=== PATIENT | female | born 1995 | race Caucasian/White ===

== ENCOUNTER 2017-10-16 08:03 | Inpatient (IN) | payer BC, OTHER ==
[~2017-10-16] VITALS: Ht 165.1 cm; Wt 80.7 kg
[2017-10-16] MEDS ORDERED: SUMATRIPTAN SUCCINATE 50 MG TABLET PO PRN (19:15)
[2017-10-16] MEDS ORDERED: MAGNESIUM HYDROXIDE 30 ML LIQUID UDC PO PRN (19:15)
[2017-10-16] MEDS ORDERED: DOCUSATE SODIUM 250 MG CAPSULE PO PRN (19:15)
[2017-10-16] MEDS ORDERED: ONDANSETRON 4 MG/2 ML VIAL IM PRN (19:15)
[2017-10-16] MEDS ORDERED: ACETAMINOPHEN 325 MG TABLET PO PRN (19:15)
[2017-10-16] MEDS ORDERED: LOPERAMIDE HCL 2 MG CAPSULE PO PRN ×2 (19:15)
[2017-10-16] MEDS ORDERED: LORAZEPAM 1 MG TABLET PO PRN ×2 (19:15)
[2017-10-16] MEDS ORDERED: LORAZEPAM 2 MG/1 ML VIAL IM PRN (19:15)
[2017-10-16] MEDS ORDERED: ONDANSETRON ODT 4 MG TAB.RAPDIS SL PRN (19:15)
[2017-10-16] MEDS ORDERED: CLONIDINE HCL 0.1 MG TABLET PO PRN (19:15)
[2017-10-16] MEDS ORDERED: NICOTINE 14 MG/24HR PATCH TD PRN (19:15)
[2017-10-16] MEDS ORDERED: PATIENT MAY USE OWN MED- MD OK INH PRN (19:15)
[2017-10-16] MEDS ORDERED: diphenhydrAMINE 50 MG CAPSULE PO PRN (19:15)
[2017-10-16] MEDS ORDERED: NICOTINE POLACRILEX 4 MG GUM-PK OF TEN BC PRN (19:15)
[2017-10-16] MEDS ORDERED: MAG HYDROX/AL HYDROX/SIMETH 30 ML LIQUID UDC PO PRN (19:15)
[2017-10-16] MEDS ORDERED: MIRALAX 17 GM POWD.PACK PO PRN (19:15)
[2017-10-16] MEDS ORDERED: IBUPROFEN 400 MG TABLET PO PRN (19:15)
--- NOTE | 2017-10-16 19:20 | NUR ---
Pre-Admission Pt is a 22 year old female seen at intake, AAOx4 with anxiety noted at this time. Discussed with patient admission policies of the unit. Pt verbalized understanding of policies regarding disposal of narcotic and other controlled home medications and unit protocols regarding taking vital sign Q4H, kitchen rules and smoking passes. Pt is coherent and able verbalize understanding and is able to respond to questions appropriately. VS BP 131/81, pulse 102, resp 18, temp 98.1, SpO2 96% RA. Will continue with admission upon patients arrival to the unit.
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
[2017-10-16 20:00] VITALS: BP 131/81
[2017-10-16 20:08] LABS: *URINE HCG, QUAL NEGATIVE (NEGATIVE)
[2017-10-16 20:28] LABS: BASOPHILS % (AUTO) 0.5 % (0.0-2.0); EOSINOPHILS # (AUTO) 0.2 K/uL (0.0-0.7); HEMATOCRIT 41.8 % (31.2-41.9); HEMOGLOBIN 14.3 g/dL (10.9-14.3); LYMPHOCYTES # (AUTO) 2.5 K/uL (20.0-40.0); LYMPHOCYTES % (AUTO) 49.2 % (20.5-51.5); MEAN CORPUSCULAR HEMOGLOBIN 32.5 uug (24.7-32.8); MEAN CORPUSCULAR HGB CONC 34 g/dL (32.3-35.6); MEAN CORPUSCULAR VOLUME 95.1 fL (75.5-95.3); MONOCYTES # (AUTO) 0.3 K/uL (2.0-10.0); MONOCYTES % (AUTO) 6.7 % (0.0-11.0); NEUTROPHILS # (AUTO) 2.1 K/uL (1.8-8.9); NEUTROPHILS % (AUTO) 40.6 % (38.5-71.5); PLATELET COUNT (AUTO) 219 K/uL (179-408); WHITE BLOOD COUNT (AUTO) 5.2 K/uL (3.8-11.8)
[2017-10-16 20:38] LABS: BILIRUBIN,TOTAL 0.6 mg/dL (0.2-1.0); MAGNESIUM 1.9 mg/dL (1.8-2.4); POTASSIUM 3.9 mmol/L (3.5-5.1); TOTAL PROTEIN, SERUM 7.1 g/dL (6.4-8.2)
[2017-10-16] MEDS: THIAMINE HCL 100 MG TABLET PO SCH (20:44)
[2017-10-16 20:47] LABS: THYROID STIMULATING HORMONE 1.422 mIU/mL (0.358-3.740)
[2017-10-16 20:56] LABS: *AMPHETAMINE, URINE NEGATIVE (NEGATIVE); *BARBITURATE, URINE NEGATIVE (NEGATIVE); *CANNABINOID, URINE NEGATIVE (NEGATIVE); *COCCAINE, URINE NEGATIVE (NEGATIVE); *OPIATE, URINE NEGATIVE (NEGATIVE); *PHENCYCLIDINE SCREEN,URINE NEGATIVE (NEGATIVE)
[2017-10-16] MEDS ORDERED: LORAZEPAM 1 MG TABLET PO SCH (21:00)
[2017-10-16] MEDS ORDERED: FLUO40CA49 PO (23:17)
[2017-10-16] MEDS ORDERED: BUSP10TA3 PO (23:17)
[2017-10-16] MEDS ORDERED: HYDR25CA PO (23:17)
[2017-10-16] MEDS ORDERED: OMEP20CA10 PO (23:17)
[2017-10-16] MEDS ORDERED: ARIP2TAB3 PO (23:17)
[2017-10-16] MEDS ORDERED: RIZA10TA27 PO (23:17)
[2017-10-16] MEDS ORDERED: TRAZ-147 PO (23:17)
[2017-10-16] MEDS ORDERED: BUSP30TA2 PO (23:17)
[2017-10-16] MEDS ORDERED: ALBU8.5H8 IH (23:17)
[2017-10-16] MEDS ORDERED: GABA-532 PO (23:17)
[2017-10-17] VITALS: BP 119/83
[2017-10-17 04:00] VITALS: BP 112/67
--- NOTE | 2017-10-17 04:00 | NUR ---
CHIDIWA deferred d/t pt sleeping - to assess while pt is awake as ordered. BP 112/67, pulse 90, resp 16, Spo2 99% RA, temp 98.[address], will continue to monitor.
--- NOTE | 2017-10-17 07:00 | NUR ---
End of Shift Pt is a 22 year old female admitted for ETOH/Benzo withdrawal, placed on a 4 day Ativan taper to be started 10/17/2017. During shift, CIWA 11: Pt presented with anxiety, in emotional distress, worried, red eyes, tearing, flushed, depressed, tremors are visible, restless and sad - scheduled Ativan 2mg administered. Pt refused scheduled Vitamin B1 injection x1 d/t fear of needles. Pt educated on risks/benefits of injection. No PRN administered during shift. Pt slept for 8 hours, intake of 500 hours, void x1 and stool x0. Safety measures in place, Endorsed to day shift nurse.
--- NOTE | 2017-10-17 07:10 | NUR ---
START OF SHIFT PATIENT IS A 22 YR OLD FEMALE ADMITTED TO [facility] ON 10/16/17 FOR A MEDICALLY SUPERVISED DETOX FROM ALCOHOL AND BENZODIAZEPINES. SHE HAS BEEN PLACED ON A 4 DAY ATIVAN TAPER AND THIS IS DAY 1. PATIENT IS ASLEEP IN BED AT THIS TIME BUT EASILY AROUSABLE, SHE STATES SHE IS " SO TIRED AND JUST WANTS TO SLEEP " , EDUCATED ON MEDICATION REGIME FOR THE DAY AND PATIENT STATES SHE UNDERSTANDS, ACCEPTS TUBERCULIN SKIN TEST. PATIENT SLEPT FOR 8 + HOURS, LAST CIWA 11 ON PM SHIFT. WILL CONTINUE TO FOLLOW MD PLAN OF CARE.
[2017-10-17 08:00] VITALS: BP 124/84
[2017-10-17] MEDS: LORAZEPAM 1 MG TABLET PO SCH ×3 (08:04→20:10)
[2017-10-17] MEDS: FOLIC ACID 1 MG TABLET PO SCH (08:05)
[2017-10-17] MEDS: THIAMINE HCL 100 MG TABLET PO SCH (08:05)
[2017-10-17] MEDS: MULTIVITAMINS,THERAPEUTIC TABLET PO SCH (08:05)
[2017-10-17] MEDS ORDERED: TUBERCULIN,PURIF.PROT.DERIV. 5 TU/0.1 ML TEST ID ONE (09:00)
--- NOTE | 2017-10-17 09:25 | NUR ---
PRN MOTRIN MOTRIN 400MG PO GIVEN FOR HEADACHE 10/16, WILL REASSESS
--- NOTE | 2017-10-17 09:30 | NUR ---
PPD PLACED RIGHT FOREARM
--- NOTE | 2017-10-17 10:25 | NUR ---
PRN REASSESS PATIENT SLEEP COMFORTABLY IN BED, RR 14 , SIDE RAILS UP, CALL LIGHT WITHIN REACH, CONTINUE TO MONITOR
--- NOTE | 2017-10-17 11:24 | NUR ---
PRN ATIVAN 2MG PO GIVEN FOR CIWA 14, PATIENT PRESENTS WITH EXTREME SWEATING, FLUSHING, ANXIETY AND AGITATION, WILL CONTINUE TO ASSESS
[2017-10-17 11:51] VITALS: BP 133/88
--- NOTE | 2017-10-17 12:24 | NUR ---
PRN REASSESS ATIVAN 2MG PO EFFECTIVE, PT REPORTS LESS ANXIETY AND FEELS LESS AGITATED, CIWA NOW 10 ( WAS 14 )
[2017-10-17] MEDS ORDERED: Medication Not On Formulary EA (Fluoxetine Hcl 40 MG) PO SCH (14:15)
[2017-10-17] MEDS: FLUOXETINE HCL 20 MG CAPSULE PO SCH (14:27)
[2017-10-17 16:00] VITALS: BP 118/86
[2017-10-17] MEDS: busPIRone 10 MG TABLET PO SCH (17:16)
--- NOTE | 2017-10-17 17:32 | NUR ---
PRN ATIVAN 1MG IMG PO ATIVAN GIVEN FOR WITHDRAWAL SYMPTOMS OF INCREASED ANXIETY, AGITATION, SWEATS AND FLUSHING, CIWA 10
--- NOTE | 2017-10-17 18:24 | NUR ---
END OF SHIFT PATIENT IS A 22 YR OLD FEMALE ADMITTED TO [facility] ON 10/16/17 FOR A MEDICALLY SUPERVISED DETOX FROM ALCOHOL AND BENZODIAZEPINES. SHE HAS BEEN PLACED ON A 4 DAY ATIVAN TAPER AND THIS IS DAY 1. PATIENT HAS BEEN ASLEEP IN BED MOST OF THE DAY , WHEN AWAKE PATIENTS WITHDRAWAL SYMPTOMS INCLUDE EXTREME SWEATING, FLUSHED FACE, EXTREME FATIGUE, INCREASED ANXIETY AND AGITATION. PRN MEDS GIVEN THIS SHIFT : ATIVAN 2MG PO, ATIVAN 1 MG PO AND MOTRIN 400MG PO. PATIENT HAD A FLUID INTAKE OF 1500ML, 2 VOIDS AND 0 BM. PPD PLACED ON RIGHT FOREARM. LAST CIWA 1O @ 1700. WILL CONTINUE TO FOLLOW MD PLAN OF CARE.
--- NOTE | 2017-10-17 19:05 | NUR ---
Start of Shift Patient Received. Patient is noted in her room sleeping but easily aroused to verbal stimuli. Breathing even and non labored. Per endorsement, patient continues on a modified Ativan taper. Patient received PRN Ativan 2mg, PRN Ativan 1mg, and Motrin 400mg with all medications noted to be effective. Last noted CIWA 10. All needs attended to promptly. Will continue plan of care as ordered.
[2017-10-17 20:04] VITALS: BP 132/74
[2017-10-17] MEDS: ARIPIPRAZOLE 2 MG TABLET PO SCH (20:11)
[2017-10-17] MEDS ORDERED: TRAZODONE 50 MG TABLET PO SCH (21:00)
[2017-10-18 00:04] VITALS: BP 127/81
[2017-10-18 04:20] VITALS: BP 129/77
--- NOTE | 2017-10-18 07:02 | NUR ---
End of Shift Patient is in bed sleeping. Breathing even and non labored. Patient continues on a modified Ativan taper. Patient is noted to be isolative to room with flat affect. No PRN medications administered. Last noted CIWA 15. Patient noted to sleep a total of 8 hours. All needs attended to promptly. Will endorse to continue plan of care as ordered.
--- NOTE | 2017-10-18 07:11 | NUR ---
Start of Shift Notes: Received patient in her room. Awake, alert and verbally responsive. Good eye contact and smiling during conversation. She states "I feel better than yesterday, I want to take a shower." Denies S/I or H/I noted. No AV hallucinations noted. Empty water bottles and chips noted at bedside table. Maintenance of personal hygiene encouraged. Patient is a 22 year old male admitted for BZO/ETOH withdrawal who was placed on a 4-day Ativan taper as ordered. No adverse reactions noted. Educated patient on her current plan of care for the day and her medication regimen. Encouraged oral fluid intake and encouraged group participation to learn new skills to prevent relapse. Will continue to monitor closely.
[2017-10-18 08:00] VITALS: BP 138/85
[2017-10-18 08:06] LABS: HEPATITIS B SURFACE AG Negative (Negative)
[2017-10-18] MEDS: THIAMINE HCL 100 MG TABLET PO SCH (08:08)
[2017-10-18] MEDS: FOLIC ACID 1 MG TABLET PO SCH (08:08)
[2017-10-18] MEDS: MULTIVITAMINS,THERAPEUTIC TABLET PO SCH (08:08)
[2017-10-18] MEDS: busPIRone 10 MG TABLET PO SCH ×2 (08:08→16:32)
[2017-10-18] MEDS: FLUOXETINE HCL 20 MG CAPSULE PO SCH (08:08)
[2017-10-18 08:43] LABS: BILIRUBIN,DIRECT 0.4 mg/dL (0.0-0.2); BILIRUBIN,TOTAL 1.6 mg/dL (0.2-1.0); CREATININE 1.1 mg/dL (0.6-1.3); POTASSIUM 3.6 mmol/L (3.5-5.1); TOTAL PROTEIN, SERUM 6.9 g/dL (6.4-8.2)
[2017-10-18] MEDS ORDERED: LORAZEPAM 1 MG TABLET PO SCH ×3 (09:00→21:00)
[2017-10-18 12:00] VITALS: BP 136/84
--- NOTE | 2017-10-18 12:00 | NUR ---
Psych MD visit: Patient seen and examined by Dr. Weber and increased patient's Trazodone order. Education provided.
--- NOTE | 2017-10-18 14:44 | NUR ---
Mid Shift Notes: CIWA 10, patient is in her room. Laying in bed with eyes closed. Encouraged to go to group and avoid extensive napping during the day.
[2017-10-18 16:00] VITALS: BP 134/96
--- NOTE | 2017-10-18 19:10 | NUR ---
Start of Shift Patient Received. Patient is in awake, alert and verbally responsive. Breathing even and non labored. Per endorsement, patient continue on a modified Ativan taper. She was noted to participate in social and group activities. Patient was seen by Psychiatrist with increase in trazodone order from 50mg to 100mg. Last noted CIWA 9. All needs attended to promptly. Will continue plan of care as ordered.
--- NOTE | 2017-10-18 19:10 | NUR ---
End of Shift Notes: Patient continues to be on 4-day Ativan taper as ordered to manage withdrawal symptoms related to BZO and ETOH withdrawal. Patient tolerating current taper well. VS monitored closely. No significant abnormalities noted. Withdrawal symptoms were closely monitored. Initial CIWA 14, patient presented with gross tremors, anxiety, agitation, and mild sweat, & paresthesia. Last CIWA 9. Per patient, Ativan has been effective in reducing patients withdrawal symptoms. Encouraged to participate in group due to social isolation, encouraged to socialize with her peers. All needs met and attended. Will continue to monitor closely.
[2017-10-18 20:36] VITALS: BP 128/79
[2017-10-18] MEDS: CLONIDINE HCL 0.1 MG TABLET PO SCH (20:41)
[2017-10-18] MEDS: ARIPIPRAZOLE 2 MG TABLET PO SCH (20:41)
[2017-10-18] MEDS: GABAPENTIN 300 MG CAPSULE PO SCH (20:42)
[2017-10-18] MEDS: TRAZODONE 50 MG TABLET PO SCH (20:42)
[2017-10-19 00:02] VITALS: BP 102/62
[2017-10-19 04:24] VITALS: BP 116/74
--- NOTE | 2017-10-19 07:15 | NUR ---
End of Shift Patient is noted in bed sleeping. Breathing even and non labored. Patient continues on a modified Ativan taper. Encouraged patient to participate in social and group act but patient noted to remain isolative to room and states maybe tomorrow. No PRN Medications administered. Last noted CIWA 12. All needs attended to promptly. Will endorse to continue plan of care as ordered.
--- NOTE | 2017-10-19 07:36 | NUR ---
START OF SHIFT Pt is a 22 yr old female, AA&Ox4. Pt was admitted on 10/16/17 for Benzo/ETOH withdrawal and is on a 4 day Ativan taper as ordered. Medication elieser well. Received report from overnight caregiver nurse. No PRN's were given during the night. Last CIWA score was 12. Pt is currently in bed resting with respirations even and unlabored. Skin is intact, warm and moist to touch. Pt is noted with flat affect. Pt is on fall and seizure precautions. Call light is within reach. Will continue to monitor.
[2017-10-19 08:00] VITALS: BP 111/63
[2017-10-19] MEDS: busPIRone 10 MG TABLET PO SCH ×2 (08:43→17:26)
[2017-10-19] MEDS: GABAPENTIN 300 MG CAPSULE PO SCH ×2 (08:44→20:29)
[2017-10-19] MEDS: LORAZEPAM 1 MG TABLET PO SCH ×3 (08:44→20:29)
[2017-10-19] MEDS: CLONIDINE HCL 0.1 MG TABLET PO SCH ×2 (08:44→20:29)
[2017-10-19] MEDS: FLUOXETINE HCL 20 MG CAPSULE PO SCH (08:44)
[2017-10-19] MEDS: FOLIC ACID 1 MG TABLET PO SCH (08:44)
[2017-10-19] MEDS: THIAMINE HCL 100 MG TABLET PO SCH (08:44)
[2017-10-19] MEDS: MULTIVITAMINS,THERAPEUTIC TABLET PO SCH (08:44)
[2017-10-19] MEDS ORDERED: LORAZEPAM 1 MG TABLET PO SCH (09:00)
[2017-10-19 12:00] VITALS: BP 106/73
[2017-10-19 16:00] VITALS: BP 98/64
--- NOTE | 2017-10-19 17:41 | NUR ---
MD COMMUNICATION Pt states of getting an allergic reaction after applying lotion to her legs. Pt is noted with raised, reddish skin on BLE. Notified Dr. Cole with new order for Benadryl 50mg PO X1 now. New order was noted and carried out.
[2017-10-19] MEDS ORDERED: diphenhydrAMINE 50 MG CAPSULE PO ONE (17:45)
[2017-10-19] MEDS ORDERED: TRAZ-144 PO (18:15)
[2017-10-19] MEDS ORDERED: GABA-534 PO (18:15)
[2017-10-19] MEDS ORDERED: FLUO-120 PO (18:15)
[2017-10-19] MEDS ORDERED: DIPH50CA37 PO (18:15)
[2017-10-19] MEDS ORDERED: BUSP10TA3 PO (18:15)
[2017-10-19] MEDS ORDERED: HYDR25CA PO (18:15)
[2017-10-19] MEDS ORDERED: CLON0.1T14 PO (18:15)
[2017-10-19] MEDS ORDERED: ARIP2TAB3 PO (18:15)
--- NOTE | 2017-10-19 19:10 | NUR ---
Start of Shift Patient Received. Patient is noted in activities room participating in group meeting. Per endorsement, patient continues on a modified Ativan taper and is tolerating medication well. Patient noted with rash to upper bilateral legs possibly due to allergic reaction to lotion. PRN Benadryl administered. Last noted CIWA 9. All needs attended to promptly. Will continue plan of care as ordered.
--- NOTE | 2017-10-19 19:18 | NUR ---
END OF SHIFT Pt is a 22 yr old female, AA&Ox4. Pt was admitted on 10/16/17 for Benzo/ETOH withdrawal and is on a 4 day Ativan taper as ordered. Medication elieser well. Pt was cooperative with medication regimen and attend group. Pt c/o anxiety, sweats and chills. Pts face is noted to be flush. Pt was c/o allergic skin reaction to the lotion. Dr. Cole was made aware with new order for Benadryl. Medication was given but was not effective. Pt is still noted with irritated skin on BLE. Endorsed to residential sales rep nurse to continue to monitor. Last CIWA score was 9 at 1600. Pt is on fall and seizure precautions. Call light is within reach.
[2017-10-19 20:27] VITALS: BP 114/67
[2017-10-19] MEDS: TRAZODONE 50 MG TABLET PO SCH (20:29)
[2017-10-19] MEDS: ARIPIPRAZOLE 2 MG TABLET PO SCH (20:29)
--- NOTE | 2017-10-19 22:11 | NUR ---
PRN Medication Administration Patient is noted verbalizing in ability of falling asleep despite receiving routine medication of Trazodone. PRN Benadryl administered as per order. Will continue to monitor.
--- NOTE | 2017-10-19 23:15 | NUR ---
PRN Medication Reassessment Patient is noted in bed sleeping. Breathing even and non labored. Patient received PRN Benadryl for inability of falling asleep with medication noted to be effective. Will continue to monitor.
[2017-10-20 00:11] VITALS: BP 102/68
[2017-10-20 04:49] VITALS: BP 106/55
--- NOTE | 2017-10-20 07:23 | NUR ---
End of Shift Patient is noted in bed sleeping but easily aroused to verbal stimuli. Breathing even and non labored. Patient continues on a modified Ativan taper. Patient received PRN Benadryl for inability of falling asleep. Patient is noted to sleep a total of 8 hours. Last noted CIWA 7. All needs attended to promptly. Will endorse to continue plan of care as ordered.
--- NOTE | 2017-10-20 07:32 | NUR ---
Patient is noted in bed sleeping but easily aroused to verbal stimuli and light touch. Resp even and non labored. Patient continues on a modified 4 day Ativan taper. Patient received PRN Benadryl last night for inability of falling asleep. Patient is noted to sleep a total of 8 hours. Pt had uneventful night. Last noted CIWA 7. Will encourage Pt to attend all group therapies for skills to maintain sobriety. Allergy to PCN, FULL CODE. All safety measures in place. Will continue to monitor for withdrawal symptoms.
[2017-10-20 08:00] VITALS: BP 115/70
[2017-10-20] MEDS: FLUOXETINE HCL 20 MG CAPSULE PO SCH (08:07)
[2017-10-20] MEDS: CLONIDINE HCL 0.1 MG TABLET PO SCH ×2 (08:07→20:35)
[2017-10-20] MEDS: MULTIVITAMINS,THERAPEUTIC TABLET PO SCH (08:07)
[2017-10-20] MEDS: busPIRone 10 MG TABLET PO SCH ×2 (08:08→16:34)
[2017-10-20] MEDS: THIAMINE HCL 100 MG TABLET PO SCH (08:08)
[2017-10-20] MEDS: FOLIC ACID 1 MG TABLET PO SCH (08:08)
[2017-10-20] MEDS: GABAPENTIN 300 MG CAPSULE PO SCH ×3 (08:08→20:34)
[2017-10-20] MEDS ORDERED: LORAZEPAM 1 MG TABLET PO SCH (09:00)
[2017-10-20] MEDS ORDERED: HYDROXYZINE PAMOATE 25 MG CAPSULE PO PRN (11:15)
[2017-10-20 12:00] VITALS: BP 115/67
[2017-10-20 16:00] VITALS: BP 115/65
--- NOTE | 2017-10-20 18:01 | NUR ---
311- END OF SHIFT Patient is 22 y/o female admitted for medically supervised ETOH withdrawal. Patient completed modified 4 day Ativan taper, she tolerated well. Pt scheduled for discharge tomorrow. Encouraged Pt to verbalize feelings, encouraged to develop coping skills and utilization of non pharmaceutical interventions to maintain sobriety. She attended 1 group session today. No PRN given today. At 1600 last CIWA 8. Allergy to PCN, FULL CODE. Adequate PO fluid intake 2250 ml, void X 6, no BM today. All safety measures in place. Will continue to monitor for withdrawal symptoms. Endorsed to PM shift.
--- NOTE | 2017-10-20 19:30 | NUR ---
START OF SHIFT Received 22 year old female patient admitted on 10/16/17 for ETOH and Benzodiazepine withdrawal. Pt is alert and oriented x4. Pt noted with anxiety, restlessness, and irritably. Per endorsement, pt did not receive PRN medications. She completed her 4 day Ativan taper and is scheduled to be DC tomorrow to [facility]. Last CIWA: 8 at 1600. Breathing is even and unlabored, safety measures in place. Will continue to monitor.
[2017-10-20 20:10] VITALS: BP 122/69
[2017-10-20] MEDS: TRAZODONE 50 MG TABLET PO SCH (20:35)
[2017-10-20] MEDS: ARIPIPRAZOLE 2 MG TABLET PO SCH (20:35)
[2017-10-21 00:05] VITALS: BP 112/65
[2017-10-21 04:00] VITALS: BP 109/59
--- NOTE | 2017-10-21 07:11 | NUR ---
END OF SHIFT Pt is a 22 year old female patient admitted on 10/16/17 for ETOH and Benzodiazepine withdrawal. Pt remains alert and oriented x4. Pt was noted with anxiety, restlessness, and irritability during the shift. She did not receive or request PRN medications. She is scheduled to be DC today to [facility]. She slept a total of 8 hrs, Intake: 1,200mL, Void: x4, BM:0, Last CIWA:6 at 2000. Breathing is even and unlabored, safety measures in place. Endorsed to AM shift.
--- NOTE | 2017-10-21 07:16 | NUR ---
START OF SHIFT Patient is 22 y/o female admitted for medically supervised ETOH and benzos withdrawal. Pt A&O X4. Awake in room performing ADLs. Patient completed modified 4 day Ativan taper yesterday, she tolerated well. Pt scheduled for discharge this morning. Encouraged Pt to verbalize feelings, encouraged to develop coping skills and utilization of non pharmaceutical interventions to maintain sobriety. Last CIWA 6. Allergy to PCN, FULL CODE. All safety measures in place. Will continue to monitor for withdrawal symptoms.
[2017-10-21] MEDS: CLONIDINE HCL 0.1 MG TABLET PO SCH (07:59)
[2017-10-21] MEDS: THIAMINE HCL 100 MG TABLET PO SCH (07:59)
[2017-10-21] MEDS: FLUOXETINE HCL 20 MG CAPSULE PO SCH (07:59)
[2017-10-21] MEDS: GABAPENTIN 300 MG CAPSULE PO SCH (07:59)
[2017-10-21] MEDS: FOLIC ACID 1 MG TABLET PO SCH (07:59)
[2017-10-21] MEDS: MULTIVITAMINS,THERAPEUTIC TABLET PO SCH (07:59)
[2017-10-21 08:00] VITALS: BP 108/67
[2017-10-21] MEDS: busPIRone 10 MG TABLET PO SCH (08:00)
--- NOTE | 2017-10-21 08:02 | NUR ---
PRN VISTARIL 25 MG PO FOR ANXIETY #9/
--- NOTE | 2017-10-21 08:56 | NUR ---
Reasses Vistaril- Pt states anxiety better. now #11/15
--- NOTE | 2017-10-21 09:35 | NUR ---
Discharge Note- Pt is in stable condition, vital signs WNL, skin is intact, denies any suicidal or homicidal ideations. All discharge paperwork signed and dated. Pt was discharged from [facility] on 10/21/17 at 0925. Pt left building with all her belongings, medications and prescriptions. notified.
== END 2017-10-21 09:25 | disposition other institution (70) | DRG 895 ==
LOC: EDSEX → SRC 18:14
PROVIDERS: ADMIT Internal Medicine; ATTEND Internal Medicine
PROC: HZ2ZZZZ Detoxification Services for Substance Abuse Treatment (ICD-10-PCS; principal; 2017-10-16)
PROC: HZ41ZZZ Group Counseling for Substance Abuse Treatment, Behavioral (ICD-10-PCS; 2017-10-18)
PROC: HZ31ZZZ Individual Counseling for Substance Abuse Treatment, Behavioral (ICD-10-PCS; 2017-10-18)
DX: F10.230 Alcohol dependence with withdrawal, uncomplicated (principal); K70.10 Alcoholic hepatitis without ascites; F31.81 Bipolar II disorder; E86.0 Dehydration; F13.230 Sedative, hypnotic or anxiolytic dependence with withdrawal, uncomplicated; Y90.9 Presence of alcohol in blood, level not specified; G43.909 Migraine, unspecified, not intractable, without status migrainosus; J45.20 Mild intermittent asthma, uncomplicated; F17.210 Nicotine dependence, cigarettes, uncomplicated; F41.9 Anxiety disorder, unspecified; Z81.1 Family history of alcohol abuse and dependence; Z81.8 Family history of other mental and behavioral disorders; Z82.49 Family history of ischemic heart disease and other diseases of the circulatory system; Z79.899 Other long term (current) drug therapy; Z91.89 Other specified personal risk factors, not elsewhere classified; Z86.69 Personal history of other diseases of the nervous system and sense organs; R79.89 Other specified abnormal findings of blood chemistry
CPT/HCPCS: 36415; 70030-TC; 80307; 80346; 83735; 84443; 84703; 85025; 86580; 86592; 86705; 86803; 87340; 87806; A4663; G0480; Q0163